=== PATIENT | female | born 1975 | race Caucasian/White ===

== ENCOUNTER 2021-04-07 23:15 | Emergency (ER) | payer OTHER ==
[~2021-04-07] VITALS: Ht 162.6 cm; Wt 61.2 kg
[~2021-04-07 23:15] MED LIST: AMOX1TAB12 PO; KETO10TA2 PO
[2021-04-08] MEDS ORDERED: NORFLEX100MG PO (08:12)
[2021-04-08] MEDS ORDERED: KETO10TA2 PO (08:12)
== END 2021-04-08 08:19 ==
LOC: ER 23:15
DX: S09.8XXA Other specified injuries of head, initial encounter (principal); S39.92XA Unspecified injury of lower back, initial encounter; W23.1XXA Caught, crushed, jammed, or pinched between stationary objects, initial encounter; Y92.019 Unspecified place in single-family (private) house as the place of occurrence of the external cause

== ENCOUNTER 2022-07-07 13:50 | Emergency (ER) | payer OTHER ==
[~2022-07-07] VITALS: Ht 149.9 cm; Wt 50.3 kg
[~2022-07-07 13:50] MED LIST changes: +NORFLEX100MG PO
[2022-07-07] MEDS ORDERED: NAPROXEN500 MG PO (18:08)
== END 2022-07-07 20:04 | disposition home or self-care (01) ==
LOC: ER 13:50
DX: S92.354A Nondisplaced fracture of fifth metatarsal bone, right foot, initial encounter for closed fracture (principal); W01.0XXA Fall on same level from slipping, tripping and stumbling without subsequent striking against object, initial encounter; Y93.9 Activity, unspecified; Y92.9 Unspecified place or not applicable